=== PATIENT | male | born 1965 | race Hispanic/Latino ===

== ENCOUNTER 2018-10-15 00:08 | Inpatient (IN) | payer OTHER ==
[2018-10-15 00:08] VITALS: BMI 41.8
[2018-10-15 01:33] LABS: BASO % 0.4 % (0.0-2.0); EOS # 0.1 K/uL (0.0-0.7); EOS % 2.4 % (0.0-4.0); LYMPH % 26.1 % (20.0-40.0); MEAN CELL VOLUME 88.2 fl (80.0-94.0); MEAN CORPUSCULAR HEMOGLOBIN 30.4 pg (27.0-31.0); MEAN CORPUSCULAR HGB CONC 34.5 g/dL (33.0-37.0); MEAN PLATELET VOLUME 8.1 fl (7.2-11.7); MONO # 0.3 K/uL (0.0-0.8); MONO % 7.2 % (0.0-10.0); NEUT # 2.4 K/uL (1.8-7.0); NEUT % 63.9 % (50.0-75.0); NRBC % 0.1 % (0.0-0.0); RBC 4.92 Mil/uL (4.40-5.90); RED CELL DISTRIBUTION WIDTH 14.8 % (11.5-14.5); WHITE BLOOD COUNT 3.8 K/uL (4.8-10.8)
[2018-10-15 01:35] LABS: URINE BILIRUBIN NEGATIVE (NEGATIVE); URINE BLOOD NEGATIVE (NEGATIVE); URINE CLARITY CLEAR (Clear); URINE COLOR STRAW (YELLOW); URINE GLUCOSE (UA) NEG (NEGATIVE); URINE LEUKOCYTE ESTERASE NEG Leu/uL (Negative); URINE PROTEIN NEGATIVE (NEGATIVE); URINE UROBILINOGEN 0.2-1.0 mg/dL (0.2-1.0)
[2018-10-15 01:42] LABS: ALB/GLOB RATIO 1.4 (1.0-2.1); ALBUMIN 3.7 g/dL (3.5-5.0); ALT/SGPT 23 U/L (21-72); AST/SGOT 37 U/L (17-59); BLOOD UREA NITROGEN 3 mg/dl (9-20); CALCIUM 8.4 mg/dL (8.4-10.2); GFR NON-AFRICAN AMERICAN > 60
[2018-10-15 02:05] LABS: BARBITURATES, UR NEGATIVE (NEGATIVE); BENZODIAZEPINES, UR NEGATIVE (NEGATIVE); OPIATES, UR NEGATIVE (NEGATIVE); PHENCYCLIDINE, UR NEGATIVE (NEGATIVE)
--- NOTE | 2018-10-15 02:20 | ED PDOC ---
HPI: Psych/Substance Abuse Time Seen by Provider: 10/15/18 00:28 Chief Complaint (Nursing): Psychiatric Evaluation History Per: Patient Additional Complaint(s): Pt. c/o feeling suicidal. Pt states he has not formulated a plan. Reports a hx of depression. Admits to drinking alcohol today. Denies HI, hallucinations. Past Medical History Reviewed: Historical Data, Nursing Documentation, Vital Signs Vital Signs: Last Vital Signs Temp 98.8 F 10/15/18 00:30 Pulse 67 10/15/18 00:30 Resp 18 10/15/18 00:30 BP 110/68 10/15/18 00:30 Pulse Ox 97 10/15/18 00:30 Primary Care Provider: FAMILY PROVIDER,NO - Medical History PMH: Anxiety, Depression, HTN Denies: Chronic Kidney Disease, Seizures (Denied) - Surgical History Surgical History: No Surg Hx - Family History Family History: States: No Known Family Hx - Home Medications Home Medications: Ambulatory Orders Medication Instructions Recorded Lactulose 20 gm PO DAILY 08/21/18 clonazePAM [clonAZEPAM] 1 mg PO BID 08/21/18 - Allergies Allergies/Adverse Reactions: Allergies Allergy/AdvReac Type Severity Reaction Status Date / Time No Known Allergies Allergy Unverified 08/21/18 23:55 Review of Systems ROS Statement: Except As Marked, All Systems Reviewed And Found Negative Physical Exam - Reviewed Nursing Documentation Reviewed: Yes Vital Signs Reviewed: Yes - Physical Exam Appears: Positive for: Well, Non-toxic, No Acute Distress Head Exam: Positive for: ATRAUMATIC, NORMAL INSPECTION, NORMOCEPHALIC Skin: Positive for: Normal Color, Warm. Negative for: Rash Eye Exam: Positive for: EOMI, Normal appearance, PERRL ENT: Positive for: Normal ENT Inspection Neck: Positive for: Normal, Painless ROM Cardiovascular/Chest: Positive for: Regular Rate, Rhythm Respiratory: Positive for: CNT, Normal Breath Sounds Gastrointestinal/Abdominal: Positive for: Normal Exam, Soft. Negative for: Tenderness Back: Positive for: Normal Inspection Extremity: Positive for: Normal ROM Neurological/Psych: Positive for: Awake, Alert, Normal Tone, Oriented (x3), Mood/Affect (calm, cooperative) - Laboratory Results Result Diagrams: 10/15/18 01:20 10/15/18 01:20 Lab Results: Total Bilirubin 1.7 mg/dl (0.2-1.3) H 10/15/18 01:20 AST 37 U/L (17-59) 10/15/18 01:20 ALT 23 U/L (21-72) 10/15/18 01:20 Alkaline Phosphatase 83 U/L (38-126) 10/15/18 01:20 Total Protein 6.4 G/DL (6.3-8.2) 10/15/18 01:20 Albumin 3.7 g/dL (3.5-5.0) 10/15/18 01:20 Globulin 2.7 gm/dL (2.2-3.9) 10/15/18 01:20 Albumin/Globulin Ratio 1.4 (1.0-2.1) 10/15/18 01:20 Urine Color Straw (YELLOW) 10/15/18 01:20 Urine Clarity Clear (Clear) 10/15/18 01:20 Urine pH 6.0 (5.0-8.0) 10/15/18 01:20 Ur Specific [place] < 1.005 (1.003-1.030) 10/15/18 01:20 Urine Protein Negative mg/dL (NEGATIVE) 10/15/18 01:20 Urine Glucose (UA) Neg mg/dL (NEGATIVE) 10/15/18 01:20 Urine Ketones Negative mg/dL (NEGATIVE) 10/15/18 01:20 Urine Blood Negative (NEGATIVE) 10/15/18 01:20 Urine Nitrate Negative (NEGATIVE) 10/15/18 01:20 Urine Bilirubin Negative (NEGATIVE) 10/15/18 01:20 Urine Urobilinogen 0.2-1.0 mg/dL (0.2-1.0) 10/15/18 01:20 Ur Leukocyte Esterase Neg Chun/uL (Negative) 10/15/18 01:20 Urine RBC (Auto) < 1 /hpf (0-3) 10/15/18 01:20 Urine Microscopic WBC 1 /hpf (0-5) 10/15/18 01:20 - ECG ECG: Positive for: Interpreted By Me ECG Rhythm: Positive for: Sinus Rhythm. Negative for: ST/T Changes Rate: 68 O2 Sat by Pulse Oximetry: 97 - Radiology X-Ray: Interpreted by Me (CXR) X-Ray Interpretation: No Acute Disease - Progress ED Course And Treament: Labs, crisis eval ordered. Pt. placed on 1:1. Medical Decision Making Medical Decision Making: Pt. evaluated by Ruth HUGHES who spoke with [facility] [employer] and requests pt. to be admitted under Dr. Cottrell. Disposition - Clinical Impression Clinical Impression: MDD (major depressive disorder), Alcohol use disorder, severe, dependence - Patient ED Disposition Is Patient to be Admitted: Yes - Disposition Disposition Time: 04:15 Condition: FAIR Forms: [employer] (Vietnamese)
[2018-10-15] MEDS ORDERED: Alum-Mag Hydrox-Simethicone Susp (30 mL) PO PRN (05:31)
[2018-10-15] MEDS ORDERED: Magnesium Hydroxide Susp 30 ml UD PO PRN (05:31)
[2018-10-15] MEDS ORDERED: DiphenhydrAMINE 50 mg/ml Inj IM PRN (05:31)
--- NOTE | 2018-10-15 06:16 | PCM.BM ---
<William Glass - Last Filed: 10/15/18 06:14> Treatment Plan Problems - Problems identified on initial assessmt Defensive Coping Date Initiated: 10/15/18 Time Initiated: 06:14 Assessment reference: NA Status: Active Hopelessness/Helplessness Date Initiated: 10/15/18 Time Initiated: 06:14 Assessment reference: NA Status: Active Knowledge Deficit: Alcohol Use Date Initiated: 10/15/18 Time Initiated: 06:15 Assessment reference: NA Status: Active Feelings of Worthlessness Date Initiated: 10/15/18 Time Initiated: 06:15 Assessment reference: NA Status: Active Self Care Deficit Date Initiated: 10/15/18 Time Initiated: 06:15 Treatment assets and liabiliti Patient Assests: cooperative, resourceful, ADL independent, negotiates basic needs Patient Liabilities: live alone, financial problems, poor support system, relationship conflicts, substance abuse, medical problems - Milieu Protocol Maintain good personal hygiene: daily Encourage regular showers, daily Remind patient to perform daily oral care, daily Assist patient to perform ADL's Maintain personal safety: every shift Educate patient to report safety concerns to staff, every shift Monitor environment for contraband/sharps Medication safety: Monitor for expected outcome, potential side effects: every shift, Assess barriers to learning: every shift, Assess readiness for medication education: every shift <Mansi Cottrell - Last Filed: 10/18/18 13:04> - Diagnosis (1) Alcohol use disorder, severe, dependence Status: Acute Interventions: Medication management, Individual and group therapy, Psychoeducation 10/18/18 13:04 (2) MDD (major depressive disorder) Status: Acute Interventions: Medication management, Individual and group therapy, Psychoeducation 10/18/18 13:04 <Yinka Lomax - Last Filed: 10/19/18 08:59> Family Contact Family involvement: Famliy/SO not involved Family contact: Patient declines to allow family contact at present Family contact name: Pt refused. Family contacted how many times per week?: 2 - Goals for Treatment Patient goals for treatment: Pt is tangential, disorganized and superficial at times. Pt reported that he would like his depression treated with medication changes. Discharge/Continuing Care - Education Needs Education Needs: Patient Medication, Patient Diagnosis/Disease Process, Patient Coping Skills, Patient Community resources, Patient Aftercare Safety Plan - Discharge Discharge Criteria: Tolerates medication w/o severe side effects, Free of Suicidal thoughts, Free of paranoid thoughts, Free of agitation, Normal sleep pattern, Ability to care for self, No longer exhibiting s/s of withdrawal, Re duction of target symptoms Discharge to:: Home - Treatment Team Participation Patient/Family/SO Statement: 10/19/18 08:55 Pt seen in treatment team on 10/18/18 from 1029 until 1037. Pt reported he feels "neutral." Pt denied AVT Hallucinations. Pt denied delusions of reference, persecution, grandiosity and jehovah's witness. Pt reported that he believes in God, but not organized jehovah's witness and spoke about the garner rule. Pt is verbose, but more redirectable. Pt continues to present as disheveled and pt was given psychoeducation on the importance of maintaining ADL's. Pt reported his main problem is his loneliness and outpatient versus PHP was discussed. Pt denied SI/HI. Pt's mood and affect were fairly flat. pt's speech was rapid, but at a normal tone and volume. Pt's psychomotor movements were within normal limits. Pt made appropriate eye contact. Pt is oriented X4. Pt offered no questions or comments at this time. Pt denied issues with sleep or appetite. Discontinuation of Klonopin discussed. Discussed with Family/SO: No Was Patient/Family/SO present at Treatment Team Meeting: Yes
--- NOTE | 2018-10-15 09:36 | CARD ---
APPROVED REPORT Date of service: 10/15/2018 EKG Measurement Heart [id number] <Conclusion> Normal sinus rhythm Normal ECG
--- NOTE | 2018-10-15 09:42 | RAD ---
Date of service: 10/15/2018 HISTORY: clearance COMPARISON: No prior. TECHNIQUE: 1 view obtained. FINDINGS: LUNGS: No active pulmonary disease. PLEURA: Hazy opacity at right costophrenic angle may reflect small pleural effusion. No left pleural effusion. No pneumothorax. CARDIOVASCULAR: No aortic atherosclerotic calcification present. Normal cardiac size. No pulmonary vascular congestion. OSSEOUS STRUCTURES: No significant abnormalities. VISUALIZED UPPER ABDOMEN: Normal. OTHER FINDINGS: None. IMPRESSION: Possible small right pleural effusion. No additional abnormality.
[2018-10-15 16:47] VITALS: O2SAT 95
--- NOTE | 2018-10-15 18:36 | CP.PCM.CON ---
<Elier Zheng - Last Filed: 10/15/18 18:54> History of Present Illness - History of Present Illness History of Present Illness: 53 yo male with pmh of Dm, Chronic back pain, Liver cirrhosis due to alcohol abuse. Admitted to [facility] due to suicidal ideation. Patient report that he was diagnosed with DM, but never took any medication, and will not take Metformin. Patient state he take lactulose 3 time a day for his liver cirrhosis. Otherwise patient have no other medical complains. Allergy none PMH: DM, Chronic back pain, liver cirrhosis medication: lactulose, Potassium pill Social: Chronic alcoholism, denies drug use. ROS negative except HPI Review of Systems - Review of Systems All systems: reviewed and no additional remarkable complaints except Past Patient History - Past Medical History & Family History Past Medical History?: Yes - Past Social History Smoking Status: Former Smoker - CARDIAC Hx Cardiac Disorders: No Hx Hypertension: Yes - PULMONARY Hx Tuberculosis: No - NEUROLOGICAL HX Cerebrovascular Accident: No Hx Seizures: No - HEENT Hx HEENT Problems: No - RENAL Hx Chronic Kidney Disease: No - ENDOCRINE/METABOLIC Hx Endocrine Disorders: Yes Hx Diabetes Mellitus Type 2: Yes - HEMATOLOGICAL/ONCOLOGICAL Hx Cancer: No Hx Human Immunodeficiency Virus (HIV): No - INTEGUMENTARY Hx Dermatological Problems: No - MUSCULOSKELETAL/RHEUMATOLOGICAL Hx Musculoskeletal Disorders: No Hx Falls: No (Denied) - GASTROINTESTINAL Hx Gastrointestinal Disorders: No Hx Liver Failure: Yes - GENITOURINARY/GYNECOLOGICAL Hx Sexually Transmitted Disorders: No - PSYCHIATRIC Hx Anxiety: Yes Hx Depression: Yes Hx Substance Use: Yes - SURGICAL HISTORY Hx Surgeries: Yes - ANESTHESIA Hx Anesthesia: Yes Hx Anesthesia Reactions: No (Denied) Hx Malignant Hyperthermia: No Meds Allergies/Adverse Reactions: Allergies Allergy/AdvReac Type Severity Reaction Status Date / Time No Known Allergies Allergy Unverified 08/21/18 23:55 - Medications Medications: Current Medications Acetaminophen (Tylenol 325mg Tab) 650 mg PO Q4 PRN PRN Reason: Pain, moderate (4-7) Al Hydrox/Mg Hydrox/Simethicone (Maalox Plus 30 Ml) 30 ml PO Q4 PRN PRN Reason: Dyspepsia Diphenhydramine HCl (Benadryl) 50 mg IM Q6 PRN PRN Reason: Extrapyramidal S/S Unable PO Diphenhydramine HCl (Benadryl) 50 mg PO Q6 PRN PRN Reason: Extrapyramidal Symptoms Diphenhydramine HCl (Benadryl) 50 mg PO HS PRN PRN Reason: Sleep Folic Acid (Folic Acid) 1 mg PO DAILY CAROLINE Haloperidol (Haldol) 5 mg PO Q4 PRN PRN Reason: Agitation Haloperidol Lactate (Haldol) 5 mg IM Q4 PRN PRN Reason: Agitation, Unable to Take PO Lorazepam (Ativan) 2 mg IM Q6 PRN PRN Reason: Anxiety/Agitation,Unable PO Lorazepam (Ativan) 2 mg PO Q6 CAROLINE Magnesium Hydroxide (Milk Of Magnesia) 30 ml PO HS PRN PRN Reason: Constipation Multivitamins/Minerals (Therapeutic-M Tab) 1 tab PO DAILY CAROLINE Thiamine HCl (Vitamin B1 Tab) 100 mg PO DAILY CAROLINE Physical Exam - Constitutional Appears: Well, Non-toxic, No Acute Distress - Head Exam Head Exam: ATRAUMATIC, NORMAL INSPECTION, NORMOCEPHALIC - Eye Exam Eye Exam: EOMI, Normal appearance, PERRL Pupil Exam: NORMAL ACCOMODATION, PERRL - ENT Exam ENT Exam: Mucous Membranes Moist, Normal Exam - Neck Exam Neck exam: Positive for: Normal Inspection - Respiratory Exam Respiratory Exam: Clear to Auscultation Bilateral, NORMAL BREATHING PATTERN - Cardiovascular Exam Cardiovascular Exam: REGULAR RHYTHM, +S1, +S2 - GI/Abdominal Exam GI & Abdominal Exam: Normal Bowel Sounds, Soft - Extremities Exam Extremities exam: Positive for: normal inspection - Back Exam Back exam: NORMAL INSPECTION - Neurological Exam Neurological exam: Alert, Normal Gait, Oriented x3 - Psychiatric Exam Psychiatric exam: Normal Affect, Normal Mood - Skin Skin Exam: Dry, Intact, Normal Color, Warm Results - Vital Signs Recent Vital Signs: Last Vital Signs Temp 98.1 F 10/15/18 15:00 Pulse 79 10/15/18 15:00 Resp 19 10/15/18 15:00 BP 149/75 10/15/18 15:00 Pulse Ox 95 10/15/18 15:00 - Labs Result Diagrams: 10/15/18 01:20 10/15/18 01:20 Labs: Laboratory Results - last 24 hr 10/15/18 10/15/18 10/15/18 01:20 01:20 01:20 WBC 3.8 L RBC 4.92 Hgb 15.0 Hct 43.4 MCV 88.2 MCH 30.4 MCHC 34.5 RDW 14.8 H Plt Count 49 L MPV 8.1 Neut % (Auto) 63.9 Lymph % (Auto) 26.1 [place] % (Auto) 7.2 Eos % (Auto) 2.4 Baso % (Auto) 0.4 Neut # (Auto) 2.4 Lymph # (Auto) 1.0 [place] # (Auto) 0.3 Eos # (Auto) 0.1 Baso # (Auto) 0.0 Sodium 134 Potassium 3.4 L Chloride 101 Carbon Dioxide 22 Anion Gap 14 BUN 3 L Creatinine 0.7 L Est GFR ( Amer) > 60 Est GFR (Non-Af Amer) > 60 Random Glucose 128 H Calcium 8.4 Total Bilirubin 1.7 H AST 37 ALT 23 Alkaline Phosphatase 83 Total Protein 6.4 Albumin 3.7 Globulin 2.7 Albumin/Globulin Ratio 1.4 Triglycerides Cholesterol LDL Cholesterol Direct HDL Cholesterol Thyroxine (T4) TSH 3rd Generation Urine Color Urine Clarity Urine pH Ur Specific [place] Urine Protein Urine Glucose (UA) Urine Ketones Urine Blood Urine Nitrate Urine Bilirubin Urine Urobilinogen Ur Leukocyte Esterase Urine RBC (Auto) Urine Microscopic WBC Urine Opiates Screen Negative Urine Methadone Screen Negative Ur Barbiturates Screen Negative Ur Phencyclidine Scrn Negative Ur Amphetamines Screen Negative U Benzodiazepines Scrn Negative U Oth Cocaine Metabols Negative U Cannabinoids Screen Negative Alcohol, Quantitative 184 H 10/15/18 10/15/18 01:20 07:15 WBC RBC Hgb Hct MCV MCH MCHC RDW Plt Count MPV Neut % (Auto) Lymph % (Auto) [place] % (Auto) Eos % (Auto) Baso % (Auto) Neut # (Auto) Lymph # (Auto) [place] # (Auto) Eos # (Auto) Baso # (Auto) Sodium Potassium Chloride Carbon Dioxide Anion Gap BUN Creatinine Est GFR ( Amer) Est GFR (Non-Af Amer) Random Glucose Calcium Total Bilirubin AST ALT Alkaline Phosphatase Total Protein Albumin Globulin Albumin/Globulin Ratio Triglycerides 157 H Cholesterol 160 LDL Cholesterol Direct 54 HDL Cholesterol 100 H Thyroxine (T4) 6.48 TSH 3rd Generation 3.55 Urine Color Straw Urine Clarity Clear Urine pH 6.0 Ur Specific [place] < 1.005 Urine Protein Negative Urine Glucose (UA) Neg Urine Ketones Negative Urine Blood Negative Urine Nitrate Negative Urine Bilirubin Negative Urine Urobilinogen 0.2-1.0 Ur Leukocyte Esterase Neg Urine RBC (Auto) < 1 Urine Microscopic WBC 1 Urine Opiates Screen Urine Methadone Screen Ur Barbiturates Screen Ur Phencyclidine Scrn Ur Amphetamines Screen U Benzodiazepines Scrn U Oth Cocaine Metabols U Cannabinoids Screen Alcohol, Quantitative Assessment & Plan - Assessment and Plan (Free Text) Assessment: 53 yo male with pmh of Dm, Chronic back pain, Liver cirrhosis due to alcohol abuse. Admitted to [facility] due to suicidal ideation. Liver Cirrhosis due alcohol abuse AST/ALt normal PLt is 49L Chronic No intervention as per now F/U ammonia DM Will check Hemoglobin 1Ac Patient is not on any medication at home hypogylcemic protocol Hypokalemia K 3.4 Follow up Mg result Patient is medically stable at moment Thank you for the consult Will follow Continue management per psych <Hanane Anderson - Last Filed: 10/15/18 20:28> Meds - Medications Medications: Current Medications Acetaminophen (Tylenol 325mg Tab) 650 mg PO Q4 PRN PRN Reason: Pain, moderate (4-7) Al Hydrox/Mg Hydrox/Simethicone (Maalox Plus 30 Ml) 30 ml PO Q4 PRN PRN Reason: Dyspepsia Dextrose (Dextrose 50% Inj) 0 ml IV STAT PRN; Protocol PRN Reason: Hypoglycemia Protocol Dextrose (Glutose 15) 0 gm PO ONCE PRN; Protocol PRN Reason: Hypoglycemia Protocol Diphenhydramine HCl (Benadryl) 50 mg IM Q6 PRN PRN Reason: Extrapyramidal S/S Unable PO Diphenhydramine HCl (Benadryl) 50 mg PO Q6 PRN PRN Reason: Extrapyramidal Symptoms Diphenhydramine HCl (Benadryl) 50 mg PO HS PRN PRN Reason: Sleep Folic Acid (Folic Acid) 1 mg PO DAILY CAROLINE Glucagon (Glucagen Diagnostic Kit) 0 mg IM STAT PRN; Protocol PRN Reason: Hypoglycemia Protocol Haloperidol (Haldol) 5 mg PO Q4 PRN PRN Reason: Agitation Haloperidol Lactate (Haldol) 5 mg IM Q4 PRN PRN Reason: Agitation, Unable to Take PO Lorazepam (Ativan) 2 mg IM Q6 PRN PRN Reason: Anxiety/Agitation,Unable PO Lorazepam (Ativan) 2 mg PO Q6 CAROLINE Last Admin: 10/15/18 20:04 Dose: 2 mg Magnesium Hydroxide (Milk Of Magnesia) 30 ml PO HS PRN PRN Reason: Constipation Multivitamins/Minerals (Therapeutic-M Tab) 1 tab PO DAILY CAROLINE Thiamine HCl (Vitamin B1 Tab) 100 mg PO DAILY CAROLINE Results - Vital Signs Recent Vital Signs: Last Vital Signs Temp 98.1 F 10/15/18 15:00 Pulse 79 10/15/18 15:00 Resp 19 10/15/18 15:00 BP 149/75 10/15/18 15:00 Pulse Ox 95 10/15/18 15:00 - Labs Result Diagrams: 10/15/18 01:20 10/15/18 19:21 Labs: Laboratory Results - last 24 hr 10/15/18 10/15/18 10/15/18 01:20 01:20 01:20 WBC 3.8 L RBC 4.92 Hgb 15.0 Hct 43.4 MCV 88.2 MCH 30.4 MCHC 34.5 RDW 14.8 H Plt Count 49 L MPV 8.1 Neut % (Auto) 63.9 Lymph % (Auto) 26.1 [place] % (Auto) 7.2 Eos % (Auto) 2.4 Baso % (Auto) 0.4 Neut # (Auto) 2.4 Lymph # (Auto) 1.0 [place] # (Auto) 0.3 Eos # (Auto) 0.1 Baso # (Auto) 0.0 Sodium 134 Potassium 3.4 L Chloride 101 Carbon Dioxide 22 Anion Gap 14 BUN 3 L Creatinine 0.7 L Est GFR ( Amer) > 60 Est GFR (Non-Af Amer) > 60 Random Glucose 128 H Calcium 8.4 Magnesium Total Bilirubin 1.7 H AST 37 ALT 23 Alkaline Phosphatase 83 Total Protein 6.4 Albumin 3.7 Globulin 2.7 Albumin/Globulin Ratio 1.4 Triglycerides Cholesterol LDL Cholesterol Direct HDL Cholesterol Thyroxine (T4) TSH 3rd Generation Urine Color Urine Clarity Urine pH Ur Specific [place] Urine Protein Urine Glucose (UA) Urine Ketones Urine Blood Urine Nitrate Urine Bilirubin Urine Urobilinogen Ur Leukocyte Esterase Urine RBC (Auto) Urine Microscopic WBC Urine Opiates Screen Negative Urine Methadone Screen Negative Ur Barbiturates Screen Negative Ur Phencyclidine Scrn Negative Ur Amphetamines Screen Negative U Benzodiazepines Scrn Negative U Oth Cocaine Metabols Negative U Cannabinoids Screen Negative Alcohol, Quantitative 184 H 10/15/18 10/15/18 10/15/18 01:20 07:15 19:21 WBC RBC Hgb Hct MCV MCH MCHC RDW Plt Count MPV Neut % (Auto) Lymph % (Auto) [place] % (Auto) Eos % (Auto) Baso % (Auto) Neut # (Auto) Lymph # (Auto) [place] # (Auto) Eos # (Auto) Baso # (Auto) Sodium 133 Potassium 4.5 Chloride 98 Carbon Dioxide 29 Anion Gap 11 BUN 8 L Creatinine 1.1 Est GFR ( Amer) > 60 Est GFR (Non-Af Amer) > 60 Random Glucose 235 H Calcium 9.2 Magnesium 1.7 Total Bilirubin AST ALT Alkaline Phosphatase Total Protein Albumin Globulin Albumin/Globulin Ratio Triglycerides 157 H Cholesterol 160 LDL Cholesterol Direct 54 HDL Cholesterol 100 H Thyroxine (T4) 6.48 TSH 3rd Generation 3.55 Urine Color Straw Urine Clarity Clear Urine pH 6.0 Ur Specific [place] < 1.005 Urine Protein Negative Urine Glucose (UA) Neg Urine Ketones Negative Urine Blood Negative Urine Nitrate Negative Urine Bilirubin Negative Urine Urobilinogen 0.2-1.0 Ur Leukocyte Esterase Neg Urine RBC (Auto) < 1 Urine Microscopic WBC 1 Urine Opiates Screen Urine Methadone Screen Ur Barbiturates Screen Ur Phencyclidine Scrn Ur Amphetamines Screen U Benzodiazepines Scrn U Oth Cocaine Metabols U Cannabinoids Screen Alcohol, Quantitative Attending/Attestation - Attestation I have personally seen and examined this patient.: Yes I have fully participated in the care of the patient.: Yes I have reviewed all pertinent clinical information: Yes Notes (Text): Agree with findings and plan as above.
[2018-10-15] MEDS ORDERED: Glucagon Recombinant 1 mg Inj IM PRN (19:01)
[2018-10-15] MEDS ORDERED: Dextrose 50% SYRINGE Inj (50 ml) IV PRN (19:01)
[2018-10-15 20:21] LABS: BLOOD UREA NITROGEN 8 mg/dl (9-20); CALCIUM 9.2 mg/dL (8.4-10.2); GFR NON-AFRICAN AMERICAN > 60
[2018-10-16] MEDS: Multivitamin With Minerals Tab PO SCH (09:07)
--- NOTE | 2018-10-16 12:28 | PCM.PSYCH ---
Initial Psychiatric Evaluation - Initial Psychiatric Evaluation Type of Admission: Voluntary Legal Status: Capacity Chief Complaint (in patient's own words): Depression Patient's Reaction to Hospitalization: HPI: 53 yo male w/ h/o alcohol use disorder and depression, presented w/ "intrusive thoughts of ending his life" in the context of acute intoxication. Patient denies acute suicidal ideation/plan/intent. He reports depressed mood, sleep/appetite disturbances and feelings of hopelessness. He denies acute AH/VH/paranoia/delusions. He is able to contract for safety at this time. PPHx: Previous psychiatric admissions for depression, alcohol use disorder; most recently to [facility] and [facility]. Patient is not compliant with Paxil. PMHx: DM, Cirrhosis, Chronic back pain ALL: NKDA FHx: Brother w/ h/o substance abuse SHx: +Alcohol Abuse (drinks 4 24oz cans of beer the "majority of the week"), denies cig use; uses marijuana occasionally Current Medications: Active Medications Generic Name Dose Route Start Last Admin Trade Name Freq PRN Reason Stop Dose Admin Acetaminophen 650 mg 10/15/18 05:31 Tylenol 325mg Tab PO Q4 PRN Pain, moderate (4-7) Al Hydrox/Mg Hydrox/Simethicone 30 ml 10/15/18 05:31 Maalox Plus 30 Ml PO Q4 PRN Dyspepsia Dextrose 0 ml 10/15/18 19:01 Dextrose 50% Inj IV STAT PRN Hypoglycemia Protocol Protocol Dextrose 0 gm 10/15/18 19:01 Glutose 15 PO ONCE PRN Hypoglycemia Protocol Protocol Diphenhydramine HCl 50 mg 10/15/18 05:31 Benadryl IM Q6 PRN Extrapyramidal S/S Unable PO Diphenhydramine HCl 50 mg 10/15/18 05:31 Benadryl PO Q6 PRN Extrapyramidal Symptoms Diphenhydramine HCl 50 mg 10/15/18 05:31 Benadryl PO HS PRN Sleep Folic Acid 1 mg 10/16/18 09:00 10/16/18 09:07 Folic Acid PO 1 mg DAILY CAROLINE Administration Glucagon 0 mg 10/15/18 19:01 Glucagen Diagnostic Kit IM STAT PRN Hypoglycemia Protocol Protocol Haloperidol 5 mg 10/15/18 05:31 Haldol PO Q4 PRN Agitation Haloperidol Lactate 5 mg 10/15/18 05:31 Haldol IM Q4 PRN Agitation, Unable to Take PO Lorazepam 2 mg 10/15/18 05:31 Ativan IM Q6 PRN Anxiety/Agitation,Unable PO Lorazepam 2 mg 10/15/18 22:00 10/16/18 09:13 Ativan PO 2 mg Q6 CAROLINE Administration Magnesium Hydroxide 30 ml 10/15/18 05:31 Milk Of Magnesia PO HS PRN Constipation Multivitamins/Minerals 1 tab 10/16/18 09:00 10/16/18 09:07 Therapeutic-M Tab PO 1 tab DAILY CAROLINE Administration Thiamine HCl 100 mg 10/16/18 09:00 10/16/18 09:07 Vitamin B1 Tab PO 100 mg DAILY CAROLINE Administration Past Psychiatric History - Past Psychiatric History Previous Treatment History: Inpatient Pertinent Medical Hx (Current Medical&Sleep Prob, Allergies): Allergies Allergy/AdvReac Type Severity Reaction Status Date / Time No Known Allergies Allergy Unverified 08/21/18 23:55 Lactulose 20 gm PO DAILY 08/21/18 clonazePAM [clonAZEPAM] 1 mg PO BID 08/21/18 Review of Systems - Psychiatric Psychiatric: As Per HPI, Abnormal Sleep Pattern, Anhedonia, Anxiety, Change in Appetite, Depression, Difficulty Concentrating, Hopelessness, Irritability, Mood Swings Mental Status Examination - Personal Presentation Personal Presentation: Looks stated age - Affect Affect: Constricted, Depressed - Motor Activity Motor Activity: Calm - Reliability in Providing Information Reliability in Providing Information: Fair - Speech Speech: Organized, Coherent - Mood Mood: Depressed, Anxious - Formal Thought Process Formal Thought Process: Circumstantial - Hallucinations/Delusions Additional comments: No AH/VH/paranoia/delusions - Obsessions/Compulsions Obsessions: No Compulsions: No - Cognitive Functions Orientation: Person, Place, Situation, Time Sensorium: Alert Attention/Concentration: Attentive Estimate of Intelligence: Average Judgement: Intact, as evidence by: Insight regarding need for hospitalization Memory: Recent intact, as evidence by: Ability to recall events of the day - Risk Risk: Diminished functioning - Strength & Assets Inventory Strength & Assets Inventory: Cooperative DSM 5 DX - DSM 5 DSM 5 Diagnosis: Major Depressive Disorder; Alcohol Use Disorder - Recommended/Plan of Treatment Treatment Recommendations and Plan of Treatment: Major Depressive Disorder; Alcohol Use Disorder -Admit to psychiatric unit -Individual and group therapy -Psychoeducation -Medicine consult -Start Wellbutrin -Ativan to prevent ETOH withdrawal -Thiamine/Folate -Disposition planning Projected ELOS: 4-6 days - Smoking Cessation Smoking Cessation Initiated: No Reason for not providing: Not indicated
[2018-10-16] MEDS: buPROPion SR 150 MG TABLET PO SCH (16:59)
[2018-10-17] MEDS: Multivitamin With Minerals Tab PO SCH (09:25)
[2018-10-17] MEDS: buPROPion SR 150 MG TABLET PO SCH (09:26)
--- NOTE | 2018-10-17 11:43 | PCM.PYCHPN ---
Psychiatric Progress Note - Psychiatric Progress Note Patient seen today, length of contact: Pt evaluated, case discussed w/ team, chart reviewed Patient Chief Complaint: Depression Problems Identified/Issues Discussed: Patient continues to report feeling depressed and anxious. He denies acute ideation to harm himself or others. Cardiac Technician provided psychoeducation that the patient would be tapered off of Ativan. Patient was argumentative with the insurance underwriter, stating that he needs ferry terminal agent treatment with Klonopin and Ativan. He seems drug seeking and stated that he needs benzos for his history of traumatic childhood and for his blood pressure, despite the patient being normotensive. Patient has a long history of alcohol abuse and insurance underwriter informed patient that it is not safe for him to abuse alcohol and benzos, which he has done in the past. Patient does not have any current signs or symptoms of alcohol withdrawal. Medication Change: Yes (Taper Ativan) Medical Record Reviewed: Yes Consults ordered or reviewed: Medicine consult Mental Status Examination - Cognitive Function Orientation: Person, Place, Situation, Time Memory: Intact Attention: WNL Concentration: WNL Association: WNL Fund of Knowledge: WN Decription of patient's judgement and insights: Improving I/J - Mood Mood: Depressed, Anxious - Affect Affect: Constricted, Depressed - Formal Thought Process Formal Thought Process: Circumstantial Psychotic Thoughts and Behaviors: No AH/VH/paranoia/delusions - Suicidal Ideation Suicidal Ideation: No - Homicidal Ideation Homicidal Ideation: No Goal/Treatment Plan - Goal/Treatment Plan Need for Continued Stay: Remain at risks for inpatient hospitalization, Severe depression anxiety Progress Toward Problem(s) and Goals/Treatment Plan: Major Depressive Disorder; Alcohol Use Disorder -Individual and group therapy -Psychoeducation -Medicine consult -Continue Wellbutrin -Ativan to prevent ETOH withdrawal; will taper gradually -Thiamine/Folate -Disposition planning Estimated Date of D/C: 10/20/18
[2018-10-18] MEDS: Multivitamin With Minerals Tab PO SCH (08:26)
[2018-10-18] MEDS: buPROPion SR 150 MG TABLET PO SCH (08:27)
--- NOTE | 2018-10-18 09:51 | PCM.PYCHPN ---
Psychiatric Progress Note - Psychiatric Progress Note Patient seen today, length of contact: Pt evaluated, case discussed w/ team, chart reviewed Patient Chief Complaint: Depression Problems Identified/Issues Discussed: Patient reports that his mood is "neutral." He denies acute psychotic symptoms including AH/VH/IOR/caodaism preoccupation/paranoia. Railway Traction Line Worker informed patient that we will continue to taper Ativan. Psychoeducation provided on the dangers of alcohol and benzo abuse. No current signs/symptoms of ETOH withdrawal. Medication Change: Yes (Taper Ativan) Medical Record Reviewed: Yes Consults ordered or reviewed: Medicine consult Mental Status Examination - Cognitive Function Orientation: Person, Place, Situation, Time Memory: Intact Attention: WNL Concentration: WNL Association: WNL Fund of Knowledge: [facility] Decription of patient's judgement and insights: Improving I/J - Mood Mood: Neutral - Affect Affect: Constricted, Depressed - Formal Thought Process Formal Thought Process: Circumstantial Psychotic Thoughts and Behaviors: No AH/VH/paranoia/delusions - Suicidal Ideation Suicidal Ideation: No - Homicidal Ideation Homicidal Ideation: No Goal/Treatment Plan - Goal/Treatment Plan Need for Continued Stay: Remain at risks for inpatient hospitalization, Severe depression anxiety Progress Toward Problem(s) and Goals/Treatment Plan: Major Depressive Disorder; Alcohol Use Disorder -Individual and group therapy -Psychoeducation -Medicine consult -Continue Wellbutrin -Ativan to prevent ETOH withdrawal; will taper gradually -Thiamine/Folate -Disposition planning Estimated Date of D/C: 10/20/18
[2018-10-19 06:36] LABS: BASO % 1.5 % (0.0-2.0); EOS # 0.1 K/uL (0.0-0.7); EOS % 3.3 % (0.0-4.0); HEMOGLOBIN 14.9 g/dL (12.0-18.0); LYMPH # 0.7 K/uL (1.0-4.3); LYMPH % 25.2 % (20.0-40.0); MEAN CELL VOLUME 89.2 fl (80.0-94.0); MEAN CORPUSCULAR HEMOGLOBIN 30.6 pg (27.0-31.0); MEAN CORPUSCULAR HGB CONC 34.3 g/dL (33.0-37.0); MEAN PLATELET VOLUME 8.5 fl (7.2-11.7); MONO # 0.3 K/uL (0.0-0.8); MONO % 10.5 % (0.0-10.0); NEUT # 1.6 K/uL (1.8-7.0); NEUT % 59.5 % (50.0-75.0); NRBC % 0.1 % (0.0-0.0); RBC 4.87 Mil/uL (4.40-5.90); RED CELL DISTRIBUTION WIDTH 14.7 % (11.5-14.5); WHITE BLOOD COUNT 2.7 K/uL (4.8-10.8)
[2018-10-19 06:56] LABS: ALB/GLOB RATIO 1.3 (1.0-2.1); ALBUMIN 3.5 g/dL (3.5-5.0); ALT/SGPT 31 U/L (21-72); AST/SGOT 30 U/L (17-59); BLOOD UREA NITROGEN 12 mg/dl (9-20); CALCIUM 9.3 mg/dL (8.4-10.2); GFR NON-AFRICAN AMERICAN > 60
[2018-10-19] MEDS: buPROPion SR 150 MG TABLET PO SCH (08:30)
--- NOTE | 2018-10-19 09:37 | PCM.PYCHPN ---
Psychiatric Progress Note - Psychiatric Progress Note Patient seen today, length of contact: Pt evaluated, case discussed w/ team, chart reviewed Patient Chief Complaint: Depression Problems Identified/Issues Discussed: Patient reports that his mood is improving. He denies acute suicidal ideation/plan/intent. No acute psychosis including AH/VH/IOR/latter-day preoccupation/paranoia. No current signs/symptoms of ETOH withdrawal. Medication Change: Yes (Taper Ativan) Medical Record Reviewed: Yes Consults ordered or reviewed: Medicine consult Mental Status Examination - Cognitive Function Orientation: Person, Place, Situation, Time Memory: Intact Attention: WNL Concentration: WNL Association: WN Fund of Knowledge: [facility] Decription of patient's judgement and insights: Improving I/J - Mood Mood: Neutral - Affect Affect: Constricted - Formal Thought Process Formal Thought Process: Circumstantial Psychotic Thoughts and Behaviors: No AH/VH/paranoia/delusions - Suicidal Ideation Suicidal Ideation: No - Homicidal Ideation Homicidal Ideation: No Goal/Treatment Plan - Goal/Treatment Plan Need for Continued Stay: Remain at risks for inpatient hospitalization, Severe depression anxiety Progress Toward Problem(s) and Goals/Treatment Plan: Major Depressive Disorder; Alcohol Use Disorder -Individual and group therapy -Psychoeducation -Medicine consult -Continue Wellbutrin -Ativan to prevent ETOH withdrawal; will taper and stop -Thiamine/Folate -Disposition planning- likely discharge tomorrow as patient is improving clinically Estimated Date of D/C: 10/20/18
--- NOTE | 2018-10-19 12:08 | CP.PCM.CON ---
History of Present Illness - History of Present Illness History of Present Illness: 53 year old male with a history of DM, alcoholism, alcoholic liver cirrhosis, depression, admitted to inpatient psych for suicidal ideation with leukopenia and thromobocytopenia. The patient denies abnormal bleeding but does note to b ruising easily. He is aware of his low blood counts which he was told was related to his alcohol abuse and liver disease. He has not required recent transfusion support. Past medical history: DM, alcoholism, alcohol liver cirrhosis Past surgical history: Denies Family history: Denies hematologic and oncologic problems Social history: Denies tobacco, drinks alcohol daily, denies illicit drug use. Allergies: NKA Review of systems: All remaining review of systems including HEENT, card iovascular, respiratory, gastrointestinal, genitourinary, musculoskeletal, dermatologic, neurologic, and psychiatric are negative unless mentioned in the HPI. Past Patient History - Past Medical History & Family History Past Medical History?: Yes - Past Social History Smoking Status: Former Smoker - CARDIAC Hx Cardiac Disorders: No Hx Hypertension: Yes - PULMONARY Hx Tuberculosis: No - NEUROLOGICAL HX Cerebrovascular Accident: No Hx Seizures: No - HEENT Hx HEENT Problems: No - RENAL Hx Chronic Kidney Disease: No - ENDOCRINE/METABOLIC Hx Endocrine Disorders: Yes Hx Diabetes Mellitus Type 2: Yes - HEMATOLOGICAL/ONCOLOGICAL Hx Cancer: No Hx Human Immunodeficiency Virus (HIV): No - INTEGUMENTARY Hx Dermatological Problems: No - MUSCULOSKELETAL/RHEUMATOLOGICAL Hx Musculoskeletal Disorders: No Hx Falls: No (Denied) - GASTROINTESTINAL Hx Gastrointestinal Disorders: No Hx Liver Failure: Yes - GENITOURINARY/GYNECOLOGICAL Hx Sexually Transmitted Disorders: No - PSYCHIATRIC Hx Anxiety: Yes Hx Depression: Yes Hx Substance Use: Yes - SURGICAL HISTORY Hx Surgeries: Yes - ANESTHESIA Hx Anesthesia: Yes Hx Anesthesia Reactions: No (Denied) Hx Malignant Hyperthermia: No Meds Home Medications: Home Medication List Medication Instructions Recorded Confirmed Type Folic Acid 1 mg PO DAILY tab 10/18/18 Rx Multimineral/Multivitamin 1 tab PO DAILY tab 10/18/18 Rx [Therapeutic-M Tab] Thiamine [Vitamin B1 Tab] 100 mg PO DAILY tab 10/18/18 Rx buPROPion SR [Wellbutrin SR 150 MG] 150 mg PO DAILY #30 tab 10/18/18 Rx GlipiZIDE [Glucotrol] 10 mg PO ACB #30 tab 10/20/18 Rx Lactulose [Kristalose] 20 gm PO TID #90 packet 05/24/19 Rx Allergies/Adverse Reactions: Allergies Allergy/AdvReac Type Severity Reaction Status Date / Time No Known Allergies Allergy Unverified 08/21/18 23:55 - Medications Medications: Current Medications Acetaminophen (Tylenol 325mg Tab) 650 mg PO Q4 PRN PRN Reason: Pain, moderate (4-7) Stop: 10/20/18 07:00 Al Hydrox/Mg Hydrox/Simethicone (Maalox Plus 30 Ml) 30 ml PO Q4 PRN PRN Reason: Dyspepsia Stop: 10/20/18 07:00 Bupropion HCl (Wellbutrin Sr 150 Mg) 150 mg PO DAILY [facility] Last Admin: 10/19/18 08:30 Dose: 150 mg Dextrose (Dextrose 50% Inj) 0 ml IV STAT PRN; Protocol PRN Reason: Hypoglycemia Protocol Dextrose (Glutose 15) 0 gm PO ONCE PRN; Protocol PRN Reason: Hypoglycemia Protocol Diphenhydramine HCl (Benadryl) 50 mg IM Q6 PRN PRN Reason: Extrapyramidal S/S Unable PO Stop: 10/20/18 07:00 Diphenhydramine HCl (Benadryl) 50 mg PO Q6 PRN PRN Reason: Extrapyramidal Symptoms Diphenhydramine HCl (Benadryl) 50 mg PO HS PRN PRN Reason: Sleep Stop: 10/20/18 07:00 Folic Acid (Folic Acid) 1 mg PO DAILY [facility] Last Admin: 10/19/18 08:30 Dose: 1 mg Glipizide (Glucotrol) 10 mg PO ACB [facility] Last Admin: 10/19/18 08:30 Dose: 10 mg Glucagon (Glucagen Diagnostic Kit) 0 mg IM STAT PRN; Protocol PRN Reason: Hypoglycemia Protocol Haloperidol (Haldol) 5 mg PO Q4 PRN PRN Reason: Agitation Stop: 10/20/18 07:00 Haloperidol Lactate (Haldol) 5 mg IM Q4 PRN PRN Reason: Agitation, Unable to Take PO Stop: 10/20/18 07:00 Lactulose (Enulose) 20 gm PO BID [facility] Lorazepam (Ativan) 2 mg IM Q6 PRN PRN Reason: Anxiety/Agitation,Unable PO Stop: 10/20/18 07:00 Lorazepam (Ativan) 0.5 mg PO Q12 CAROLINE Stop: 10/20/18 10:00 Magnesium Hydroxide (Milk Of Magnesia) 30 ml PO HS PRN PRN Reason: Constipation Stop: 10/20/18 07:00 Multivitamins/Minerals (Therapeutic-M Tab) 1 tab PO DAILY [facility] Last Admin: 10/18/18 08:26 Dose: 1 tab Thiamine HCl (Vitamin B1 Tab) 100 mg PO DAILY [facility] Last Admin: 10/19/18 08:29 Dose: 100 mg Physical Exam - Head Exam Head Exam: ATRAUMATIC - Eye Exam Eye Exam: Normal appearance - ENT Exam ENT Exam: Mucous Membranes Dry - Respiratory Exam Respiratory Exam: NORMAL BREATHING PATTERN - Cardiovascular Exam Cardiovascular Exam: +S1, +S2 - GI/Abdominal Exam GI & Abdominal Exam: Normal Bowel Sounds - Extremities Exam Extremities exam: Positive for: normal inspection - Neurological Exam Neurological exam: Oriented x3 - Psychiatric Exam Psychiatric exam: Anxious - Skin Skin Exam: Warm Results - Vital Signs Recent Vital Signs: Last Vital Signs Temp 97.1 F L 10/19/18 06:13 Pulse 69 10/19/18 06:13 Resp 18 10/19/18 06:13 BP 111/67 10/19/18 06:13 Pulse Ox 95 10/15/18 15:00 - Labs Result Diagrams: 10/19/18 06:27 10/19/18 06:27 Labs: Laboratory Results - last 24 hr 10/19/18 10/19/18 10/19/18 05:59 06:27 06:27 WBC RBC Hgb Hct MCV MCH MCHC RDW Plt Count MPV Neut % (Auto) Lymph % (Auto) [place] % (Auto) Eos % (Auto) Baso % (Auto) Neut # (Auto) Lymph # (Auto) [place] # (Auto) Eos # (Auto) Baso # (Auto) Sodium 136 Potassium 3.8 Chloride 103 Carbon Dioxide 25 Anion Gap 12 BUN 12 Creatinine 0.7 L Est GFR ( Amer) > 60 Est GFR (Non-Af Amer) > 60 POC Glucose (mg/dL) 142 H Random Glucose 143 H Calcium 9.3 Phosphorus 3.8 Magnesium 1.7 Total Bilirubin 1.6 H AST 30 ALT 31 Alkaline Phosphatase 75 Ammonia 62 H D Total Protein 6.3 Albumin 3.5 Globulin 2.8 Albumin/Globulin Ratio 1.3 10/19/18 06:27 WBC 2.7 L RBC 4.87 Hgb 14.9 Hct 43.4 MCV 89.2 MCH 30.6 MCHC 34.3 RDW 14.7 H Plt Count 36 L MPV 8.5 Neut % (Auto) 59.5 Lymph % (Auto) 25.2 [place] % (Auto) 10.5 H Eos % (Auto) 3.3 Baso % (Auto) 1.5 Neut # (Auto) 1.6 L Lymph # (Auto) 0.7 L [place] # (Auto) 0.3 Eos # (Auto) 0.1 Baso # (Auto) 0.0 Sodium Potassium Chloride Carbon Dioxide Anion Gap BUN Creatinine Est GFR ( Amer) Est GFR (Non-Af Amer) POC Glucose (mg/dL) Random Glucose Calcium Phosphorus Magnesium Total Bilirubin AST ALT Alkaline Phosphatase Ammonia Total Protein Albumin Globulin Albumin/Globulin Ratio Assessment & Plan (1) Thrombocytopenia Assessment and Plan: bone marrow suppression from recent alcohol liver disease and splenic sequestration outpatient CBC no current transfusion indication Status: Acute (2) Leukopenia Assessment and Plan: bone marrow suppression from alcohol splenic sequestration to neutropenia outpatient CBC Status: Acute (3) Alcohol use disorder, severe, dependence Assessment and Plan: counseled on alcohol cessation Thank you for this interesting consult. Status: Acute
[2018-10-19] MEDS: Multivitamin With Minerals Tab PO SCH (17:19)
[2018-10-20] MEDS: Multivitamin With Minerals Tab PO SCH (08:49)
[2018-10-20] MEDS: buPROPion SR 150 MG TABLET PO SCH (08:49)
--- NOTE | 2018-10-20 09:34 | PCM.PYCHDC ---
Mental Status Examination - Mental Status Examination Orientation: Person, Place, Situation, Time Memory: Intact Mood: Neutral Affect: Broad Speech: Appropriate Attention: WNL Concentration: WNL Association: WNL Fund of Knowledge: WNL Formal Thought Process: No Impairment Description of patient's judgement and insight: Fair I/J Psychotic Thoughts and Behaviors: No AH/VH/paranoia/delusions Suicidal Ideation: No Current Homicidal Ideation?: No Discharge Summary - Discharge Note Reason for Hospitalization: HPI: 53 yo male w/ h/o alcohol use disorder and depression, presented w/ "intrusive thoughts of ending his life" in the context of acute intoxication. Patient denies acute suicidal ideation/plan/intent. He reports depressed mood, sleep/appetite disturbances and feelings of hopelessness. He denies acute AH/VH/paranoia/delusions. He is able to contract for safety at this time. PPHx: Previous psychiatric admissions for depression, alcohol use disorder; most recently to [facility] and [facility] (formerly [facility] Patient is not compliant with Paxil. PMHx: DM, Cirrhosis, Chronic back pain ALL: NKDA FHx: Brother w/ h/o substance abuse SHx: +Alcohol Abuse (drinks 4 24oz cans of beer the "majority of the week"), denies cig use; uses marijuana occasionally Consultations:: List each consultation separately and include: 1. Reason for request. 2. Findings. 3. Follow-up Consultations: Medicine consult, Hematology consult; patient medically cleared by hospitalist and ict teacher for discharge Summary of Hospital Course include:: 1. Description of specific treatment plan utilized for patients during their course of treatmen. 2. Summarize the time- course for resolution of acute symptoms and/or regressed behaviors. 3. Describe issues identified and worked on during hospitalization. 4. Describe medication utilized. 5. Describe medical problems identified and treated. 6. Reassessment of suicide risk Summary of Hospital Course: Patient admitted to the psychiatry unit. Individual and group therapy were provided. Patient was stabilized on Wellbutrin DR 150 mg PO Daily. He was evaluated and medically cleared by medical and hematology consultants. He was treated with Ativan to prevent etoh withdrawal. Patient denies acute depression/anxiety/AH/VH/paranoia/delusions/etoh withdrawal. He is psychiatrically stable for discharge at this time. Psychoeducation provided on the dangers of ETOH abuse and the importance of compliance with treatment and medications. - Diagnosis (1) Alcohol use disorder, severe, dependence Current Visit: Yes Status: Acute (2) MDD (major depressive disorder) Current Visit: Yes Status: Acute - Final Diagnosis (DSM 5) Condition upon Discharge: STABLE DSM 5: Major Depressive Disorder; Alcohol Use Disorder Disposition: HOME/ ROUTINE Follow-up Treatment Plan: Patient is psychiatrically stable for discharge at this time Prescriptions/Medication Reconciliation: buPROPion SR [Wellbutrin SR 150 MG] 150 mg PO DAILY #30 tab GlipiZIDE [Glucotrol] 10 mg PO ACB #30 tab Lactulose [Kristalose] 20 gm PO TID #90 packet - Smoking Cessation Smoking Cessation Medication prescribed: No Reason for not providing: Not indicated - Antipsychotic Medications Pt discharged on 2 or more routine antipsychotic medications: No
[2018-10-20] MEDS ORDERED: Lactulose 10 gm/15 ml (Rectal Use) PR ONE (10:01)
[2018-10-20 16:22] VITALS: BP 127/71; PULSE 81; RESP 20; TEMP 98.9
== END 2018-10-20 18:00 | disposition home or self-care (01) | DRG 426 ==
LOC: H.ER 00:08 → H.ERHOLD 04:34 → H.STEP 05:23
PROVIDERS: ADMIT Psychiatry & Neurology Psychiatry; ATTEND Psychiatry & Neurology Psychiatry
DX: F32.9 Major depressive disorder, single episode, unspecified (principal); E87.6 Hypokalemia; K70.30 Alcoholic cirrhosis of liver without ascites; E11.9 Type 2 diabetes mellitus without complications; I10 Essential (primary) hypertension; D70.9 Neutropenia, unspecified; F10.20 Alcohol dependence, uncomplicated; Y90.6 Blood alcohol level of 120-199 mg/100 ml; R45.851 Suicidal ideations; F12.90 Cannabis use, unspecified, uncomplicated; Z76.5 Malingerer [conscious simulation]; Z87.891 Personal history of nicotine dependence; Z79.84 Long term (current) use of oral hypoglycemic drugs